=== PATIENT | female | born 1960 | race Caucasian/White ===

== ENCOUNTER 2024-12-28 22:22 | Emergency (ER) | payer SELFPAY ==
--- NOTE | ~2024-12-28 | XR_ITS ---
HISTORY: racoon bite COMPARISON: None TECHNIQUE: 2 views of the tibia and fibula were performed FINDINGS: No acute or subacute fracture. Joint spaces are preserved and alignment is maintained. Soft tissues are unremarkable without radiopaque foreign body or significant calcification. Age-appropriate mineralization. Ossification of the insertion of the Achilles tendon is present. IMPRESSION: No acute fracture or dislocation. Trace degenerative disease. Reviewed, dictated and finalized at location A.
--- OUTSIDE RECORDS SUMMARY | 2024-12-28 22:24 | XMS_ITS | Referral Summary ---
Author Organization [facility] Address [address] [place] [id number] Care Team Providers Care Corporate Auditor Name Role Phone Urban Deborah Chadwick NP Primary Care Provider [phone] Ramesh Vale MD Unavailable [phone] Allergies No known active allergies Medications levothyroxine (SYNTHROID) 75 mcg tablet Take 1 tablet (75 mcg total) by mouth daily 11/12/2022 Active propranolol LA (INDERAL LA) 80 mg 24 hr capsule Take 1 capsule (80 mg total) by mouth daily 10/28/2022 Active metFORMIN XR (GLUCOPHAGE XR) 500 mg 24 hr tablet Take 1 tablet (500 mg total) by mouth daily 12/29/2022 Active Active Problems Problem Noted Date Diagnosed Date Erythrocytosis 01/08/2023 Social History Tobacco Use Types Packs/Day Years Used Date Smoking Tobacco: Some Days Cigarettes Passive Smoke Exposure: Past Smokeless Tobacco: Never Tobacco Cessation:Ready to Q uit: Not Asked AUDIT-C Answer Date Recorded Q1: How often do you have a drink containing alc ohol? Monthly or less 12/08/2022 Q2: How many drinks containi ng alcohol do you have on a typical day when you are drinking? 3 or 4 12/08/2022 Q3: How often do you have si x or more drinks on one occasion? 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 Gender Identity Not on file Sexual Orientation Not on file Last Filed Vital Signs Vital Sign Reading Time Taken Comments Blood Pressure 162/84 01/13/2023 10:52 AM CDT Pulse 75 01/13/2023 10:52 AM CDT Temperature 36.8 C (98.2 F) 01/13/2023 10:52 AM CDT Respiratory Rate 17 01/13/2023 10:52 AM CDT Oxygen Saturation 97% 01/13/2023 10:52 AM CDT Inhaled Oxygen Concentration - - Weight 86.6 kg (191 lb) 01/13/2023 10:52 AM CDT Height 165.1 cm (5' 5) 01/13/2023 10:52 AM CDT Body Mass Index 31.78 01/13/2023 10:52 AM CDT Plan of Treatment Not on file Insurance [employer] [facility] [employer] [facility] Care Teams Corporate Auditor Relationship Specialty Start Date End Date Deborah Duggan NP PCP - General Nurse Practitioner 08/14/22 Ramesh Vale MD [address] [place] [address] MEDICAL ONCOLOGY, [place] [id number] Medical Oncologist/Elastic Assembler Hematology and Oncology 01/11/23
--- OUTSIDE RECORDS SUMMARY | 2024-12-28 22:24 | XMS_ITS | Clinical Summary ---
Author Organization [facility] Address [address] [place] [id number] Care Team Providers Care Material Man Name Role Phone Urban Deborah Chadwick NP Primary Care Provider [phone] Ramesh Vale MD Unavailable [phone] Allergies No known active allergies Medications levothyroxine [...] Problem Noted Date Diagnosed Date Erythrocytosis 01/08/2023 Surgical History Surgery Date Site/Laterality Comments SECTION 07/12/1979 - 07/11/1980 HYSTERECTOMY 07/12/1989 - 07/11/1990 GALLBLADDER SURGERY 07/12/2019 - 07/11/2020 Medical History Medical History Date Comments Hypertension Thyroid disease Anxiety Family History Medical History Relation Name Comments Throat cancer Brother MANJU sinus Sister Joanne Relation Name Status Comments Brother MANJU Alive Sister Joanne Social History Tobacco Use Types Packs/Day Years [...] on file 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 Gender Identity Not on file Sexual Orientation Not on file Obstetrics History Last Filed Vital Signs Vital Sign Reading [...] 01/13/2023 10:52 AM CDT Plan of Treatment Health Maintenance Due Date Last Done Comments Breast Cancer Screening-Mammogram 1959 Colon Cancer Screening-Colonoscopy 1959 Depression Screening 1959 Fall Risk Assessment 1959 Hepatitis C Screening 1959 Osteoporosis Screening-Bone Density Scan 1959 DTaP/Tdap/Td Vaccine (1 - Tdap) 1970 Hepatitis B Screening 1977 Pneumococcal vaccine 65+ (1 of 2 - PCV) 1978 Zoster Vaccine (1 of 2) 2009 Well Visit 65+ 02/18/2024 Covid-19 Vaccine (3 - season) 2024, 10/08/2020 Influenza Vaccine (Season Ended) 2025 Insurance [facility]ETNA [facility] [place] Care Teams Material Man Relationship Specialty Start Date End Date Deborah Duggan NP PCP - General Nurse Practitioner 08/14/22 Ramesh Vale MD [address] [place] [address] MEDICAL ONCOLOGY, [address] [address] Medical Oncologist/Grain Merchandising Manager Hematology and Oncology 01/11/23
[2024-12-28 22:25] VITALS: BP 183/84; PULSE 86; RESP 18; TEMP 36.4; O2SAT 97
--- OUTSIDE RECORDS SUMMARY | 2024-12-28 22:25 | XMS_ITS | Data Portability ---
Author Organization [facility], Main Office Address [address] [place] [address] Assessment Encounter Date Assessment Date Assessment LastModified by Organization Details LastModified Time 12/28/2022 12/28/2022 WEA- 12/28/22 Cscope- will have her see GI first to see what their recommendation is for type of screening due to her previous issues with colonoscopy, she has now refused to go to GI or get a Cscope WWE- refuses Mammogram- 12/2021 DEXA- 12/2021- osteopenia LDCT- refuses Call office if worse, ER if life threatening illness RTC 4 months and PRN She voices understanding of plan and agrees [email or web address] Not available 12/28/2022 13:16:50 04/26/2023 04/26/2023 WEA- 12/28/22 Cscope- will have her see GI first to see what their recommendation is for type of screening due to her previous issues with colonoscopy, she has now refused to go to GI or get a Cscope WWE- refuses Mammogram- 12/2021- refuses further DEXA- 12/2021- osteopenia LDCT- refuses Call office if worse, ER if life threatening illness RTC 4 months and PRN She voices understanding of plan and agrees [email or web address] Not available 04/26/2023 11:32:09 Plan of Treatment Reminders Order Date Submit Date Provider Last Modified By Organization Details Last Modified Time Details Appointments None recorded. Lab vitamin B12 + folate, serum or blood 2022 023 [email or web address] [facility] (Lab), [address] [place], [address], 12:56:16 lipid panel, serum 2022 023 [email or web address] [facility] (Lab), [address] [place], [address], 3 17:28:25 T4, free, serum [address] [facility] (Lab), [address] [place], [address], 3 21:54:05 TSH, serum or plasma [address] [facility] (Lab), [address] [place], [address], 3 22:04:56 vitamin D, 25-hydroxy, total, serum [address] (Lab), [address] [place], [address], 4 12:56:15 glycohemogl obin, total, blood [address] [facility] (Lab), [address] [place], [address], 3 18:21:26 CBC w/ auto diff [address] [facility] (Lab), [address] [place], [address], 3 14:48:37 CMP, serum or plasma [address] [facility] (Lab), [address] [place], [address], 3 17:28:20 lipid panel, serum [address] [facility] (Lab), [address] [place], [address], 3 12:17:21 TSH, serum or plasma [address] [facility] (Lab), [address] [place], [address], 3 12:35:23 T4, free, serum [address] [facility] (Lab), [address] [place], [address], 3 12:21:56 glycohemogl obin, total, blood [address] [facility] (Lab), [address] [place], [address], 3 13:03:46 CBC w/ auto diff [address] [facility] (Lab), [address] [place], [address], 3 11:41:00 CMP, serum or plasma [address] [facility] (Lab), [address] [place], [address], 3 12:16:56 vitamin B12 + folate, serum or blood [address] (Lab), [address] [place], [address], 3 15:50:27 vitamin D, 25-hydroxy, total, serum [address] (Lab), [address] [place], [address], 3 15:50:27 Referral None recorded. Procedures None recorded. Surgeries None recorded. Imaging MAMMO, screening, bilateral [address] ([facility]), [address] [place], [address], 4 15:56:37 Medication Orders cyanocobala min (vit B-12) 500 mcg tablet 2022 023 CUONG [facility], [address] [place], [address], 3 10:33:47 ergocalcife rol (vitamin D2) 1,250 mcg (50,000 unit) capsule 2022 023 [email or web address] [facility], [address] [place], [address], 3 13:15:34 Patient TargetsNo targets recorded. Patient Instructions Encounter Date Encounter Id Patient Instructions Last Modified By Organization Details Last Modified Time 12/28/2022 [id number] INFLUENZA VACCIN E Next vaccination to be given fall of 2022 TD/TDAP Patient will get at local pharmacy/health department PNEUMONIA VACCINE Patient will get at local pharmacy/health department SHINGLES Patient will get at local pharmacy/health department MAMMOGRAM: Last Mammogram _ Ordered DEXA SCAN No screening necessary patient is up to date CERVICAL SCREENING/PELVIC EXAMINATION Recommended today, but patient declined COLORECTAL SCREENING: Last Colonoscopy Recommended today, but patient declined DEPRESSION SCREENING History of depression BMI Obesity try to lose 5% of your body weight NUTRITION Continue healthy eating & exercise PHYSICAL ACTIVITY Need more exercise/physical activity minimum of 30-40 minutes of activity that causes mild breathlessness/day VISION Recommended today ALCOHOL USE No alcohol use TOBACCO USE current tobacco use Patient is not interested in smoking cessation at this time- Handout given LUNG CANCER SCREENING Recommendation for Lung Cancer Screening with LDCT- Patient declined SEXUALLY ACTIVE No HEPATITIS C SCREENING Not indicated GLUCOSE SCREENING Ordered LIPID SCREENING Ordered [email or web address] [id number] Not available 12/28/2022 13:18:33 Reason for Referral None Reported. Results Created Date Observation Date Name Description Value Unit Range Abnormal Flag Note LastModifiedBy Organization Detail LastModifiedTime 08/03/1908/03/2022 HEMOG LOBIN A1C HA1C 6.2 % 4.0-6. 0 high Diabe charis Tre barger Crite jose: <5.7% Consi stent with absen ce of diabe charis 5.7-6 .4% Consi stent with incre ased risk for diabe charis (pred iabet es) >OR=6 .5% Consi stent with diabe charis REFER ENCE: Diabe charis Care 2016, 39(Ramos ppl.1 ):s13 -s22 Not Available [facility] (Lab) [address] [place], [address], 08/03/2022 16:00:29 08/03/19 23 08/03/2022 FOLAT E, SERUM /PLAS MA folate 8.72 NG/mL 2.76-2 0.0 Not Available [facility] (Lab) [address] [place], [address], 08/03/2022 14:24:08 08/03/19 23 08/03/2022 VITAM IN B12 (DONN JHON ) vb12 750 pg/mL 239-93 1 Not Available [facility] (Lab) [address] [place], [address], 08/03/2022 14:24:07 08/03/19 23 08/03/2022 TSH thyroid-stim ulating hormone 7.130 uIU/m L 0.465- 4.680 high Not Available [facility] (Lab) [address] [place], [address], 08/03/2022 14:17:11 08/03/1908/03/2022 VITAM IN D 25-HY DROXY vd25oh 35.6 NG/mL 30-100 Vitam in D Statu s: Defic ient: <20 ng/mL Insuf ficie nt: 20-29 ng/mL Suffi cient : 30-10 0 ng/mL Not Available [facility] (Lab) [address] [place], [address], 08/03/2022 14:15:12 08/03/19 23 08/03/2022 CBC/C OMPLE TE BLD COUNT W/DIF F white blood cells 15.4 x10'3 /uL 4.2-10 .8 high Not Available [facility] (Lab) [address] [place], [address], 08/03/2022 14:02:45 08/03/19 23 08/03/2022 CBC/C OMPLE TE BLD COUNT W/DIF F red blood cells 5.41 x10'6 /uL 3.80-5 .20 high Not Available [facility] (Lab) [address] [place], [address], 08/03/2022 14:02:45 08/03/1908/03/2022 CBC/C OMPLE TE BLD COUNT W/DIF F hemoglobin 17.5 g/dL 12.0-1 5.6 high Not Available [facility] (Lab) [address] [place], [address], 08/03/2022 14:02:45 08/03/19 23 08/03/2022 CBC/C OMPLE TE BLD COUNT W/DIF F hematocrit 53.2 % 35.7-4 5.7 high Not Available [facility] (Lab) [address] [place], [address], 08/03/2022 14:02:45 08/03/1908/03/2022 CBC/C OMPLE TE BLD COUNT W/DIF F mean red cell volume 98.3 fL 82.0-9 9.0 Not Available [facility] (Lab) [address] [place], [address], 08/03/2022 14:02:45 08/03/19 23 08/03/2022 CBC/C OMPLE TE BLD COUNT W/DIF F mean red cell hemoglobin 32.3 pg 27.0-3 3.0 Not Available [facility] (Lab) [address] [place], [address], 08/03/2022 14:02:45 08/03/1908/03/2022 CBC/C OMPLE TE BLD COUNT W/DIF F mean RBC HGB concentratio n 32.9 g/dL 31.0-3 6.0 Not Available [facility] (Lab) [address] [place], [address], 08/03/2022 14:02:45 08/03/1908/03/2022 CBC/C OMPLE TE BLD COUNT W/DIF F red cell distribution width 12.8 % 11.8-1 5.5 Not Available [facility] (Lab) [address] [place], [address], 08/03/2022 14:02:45 08/03/1908/03/2022 CBC/C OMPLE TE BLD COUNT W/DIF F platelets 196 x10'3 /uL 150-40 0 Not Available [facility] (Lab) [address] [place], [address], 08/03/2022 14:02:45 08/03/1908/03/2022 CBC/C OMPLE TE BLD COUNT W/DIF F mean platelet volume 11.0 fL 9.0-12 .4 Not Available [facility] (Lab) [address] [place], [address], 08/03/2022 14:02:45 08/03/1908/03/2022 CBC/C OMPLE TE BLD COUNT W/DIF F neutrophils 67.0 % 39.0-7 2.0 Not Available [facility] (Lab) [address] [place], [address], 08/03/2022 14:02:45 08/03/1908/03/2022 CBC/C OMPLE TE BLD COUNT W/DIF F lymphocytes 23.8 % 16.0-4 7.0 Not Available [facility] (Lab) [address] [place], [address], 08/03/2022 14:02:45 08/03/1908/03/2022 CBC/C OMPLE TE BLD COUNT W/DIF F monocytes 6.2 % 5.0-12 .0 Not Available [facility] (Lab) [address] [place], [address], 08/03/2022 14:02:45 08/03/1908/03/2022 CBC/C OMPLE TE BLD COUNT W/DIF F eosinophils 1.9 % 1.0-7. 0 Not Available [facility] (Lab) [address] [place], [address], 08/03/2022 14:02:45 08/03/1908/03/2022 CBC/C OMPLE TE BLD COUNT W/DIF F basophils 0.6 % 0.0-2. 0 Not Available [facility] (Lab) [address] [place], [address], 08/03/2022 14:02:45 08/03/1908/03/2022 CBC/C OMPLE TE BLD COUNT W/DIF F immature granulocytes 0.5 % 0.00-0 .50 Not Available [facility] (Lab) [address] [place], [address], 08/03/2022 14:02:45 08/03/1908/03/2022 CBC/C OMPLE TE BLD COUNT W/DIF F neutrophils, absolute count 10.31 x10'3 /uL 1.5-8. 0 high Not Available [facility] (Lab) [address] [place], [address], 08/03/2022 14:02:45 08/03/1908/03/2022 CBC/C OMPLE TE BLD COUNT W/DIF F lymphocytes, absolute count 3.66 x10'3 /uL 1.07-3 .43 high Not Available [facility] (Lab) [address] [place], [address], 08/03/2022 14:02:45 08/03/1908/03/2022 CBC/C OMPLE TE BLD COUNT W/DIF F monocytes, absolute count 0.95 x10'3 /uL 0.29-0 .99 Not Available [facility] (Lab) [address] [place], [address], 08/03/2022 14:02:45 08/03/1908/03/2022 CBC/C OMPLE TE BLD COUNT W/DIF F eosinophils, absolute count 0.30 x10'3 /uL 0.02-0 .53 Not Available [facility] (Lab) [address] [place], [address], 08/03/2022 14:02:45 08/03/1908/03/2022 CBC/C OMPLE TE BLD COUNT W/DIF F basophils, absolute count 0.10 x10'3 /uL 0.01-0 .08 high Not Available [facility] (Lab) [address] [place], [address], 08/03/2022 14:02:45 08/03/1908/03/2022 CBC/C OMPLE TE BLD COUNT W/DIF F immature granulocytes ,absolute 0.08 x10'3 /uL 0.00-0 .05 high Not Available [facility] (Lab) [address] [place], [address], 08/03/2022 14:02:45 08/03/1908/03/2022 CBC/C OMPLE TE BLD COUNT W/DIF F nucleated red blood cells 0.0 % -0 Not Available [facility] (Lab) [address] [place], [address], 08/03/2022 14:02:45 08/03/1908/03/2022 CBC/C OMPLE TE BLD COUNT W/DIF F NRBC# 0.00 x10'3 /uL Not Available [facility] (Lab) [address] [place], [address], 08/03/2022 14:02:45 08/03/19 23 08/03/2022 URINA LYSIS COMPL ETE/I RIS W/RFX color yellow Not Available [facility] (Lab) [address] [place], [address], 08/03/2022 13:36:35 08/03/19 23 08/03/2022 URINA LYSIS COMPL ETE/I RIS W/RFX appear extra turbid abnormal Not Available [facility] (Lab) [address] [place], [address], 08/03/2022 13:36:35 08/03/19 23 08/03/2022 URINA LYSIS COMPL ETE/I RIS W/RFX specific gravity 1.021 1.001- 1.030 Not Available [facility] (Lab) [address] [place], [address], 08/03/2022 13:36:35 08/03/19 23 08/03/2022 URINA LYSIS COMPL ETE/I RIS W/RFX pH 5.0 pH_un its 5.0-9. 0 Not Available [facility] (Lab) [address] [place], [address], 08/03/2022 13:36:35 08/03/19 23 08/03/2022 URINA LYSIS COMPL ETE/I RIS W/RFX leukocytes negati ve dimitrios/u L negati ve- Not Available [facility] (Lab) [address] [place], [address], 08/03/2022 13:36:35 08/03/19 23 08/03/2022 URINA LYSIS COMPL ETE/I RIS W/RFX nitrite negati ve negati ve- Not Available [facility] (Lab) [address] [place], [address], 08/03/2022 13:36:35 08/03/1908/03/2022 URINA LYSIS COMPL ETE/I RIS W/RFX protein negati ve mg/dL negati ve- Not Available [facility] (Lab) [address] [place], [address], 08/03/2022 13:36:35 08/03/1908/03/2022 URINA LYSIS COMPL ETE/I RIS W/RFX glucose normal mg/dL normal - Not Available [facility] (Lab) [address] [place], [address], 08/03/2022 13:36:35 08/03/19 23 08/03/2022 URINA LYSIS COMPL ETE/I RIS W/RFX ketones negati ve mg/dL negati ve- Not Available [facility] (Lab) [address] [place], [address], 08/03/2022 13:36:35 08/03/1908/03/2022 URINA LYSIS COMPL ETE/I RIS W/RFX urobilinogen normal mg/dL normal - Not Available [facility] (Lab) [address] [place], [address], 08/03/2022 13:36:35 08/03/1908/03/2022 URINA LYSIS COMPL ETE/I RIS W/RFX bilirubin negati ve mg/dL negati ve- Not Available [facility] (Lab) [address] [place], [address], 08/03/2022 13:36:35 08/03/19 23 08/03/2022 URINA LYSIS COMPL ETE/I RIS W/RFX blood negati ve mg/dL negati ve- Not Available [facility] (Lab) [address] [place], [address], 08/03/2022 13:36:35 08/03/19 23 08/03/2022 URINA LYSIS COMPL ETE/I RIS W/RFX white blood cells 0-8 /i??h pfi?? 0-8 Not Available [facility] (Lab) [address] [place], [address], 08/03/2022 13:36:35 08/03/19 23 08/03/2022 URINA LYSIS COMPL ETE/I RIS W/RFX red blood cells 0-4 /i??h pfi?? 0-4 Not Available [facility] (Lab) [address] [place], [address], 08/03/2022 13:36:35 08/03/19 23 08/03/2022 URINA LYSIS COMPL ETE/I RIS W/RFX bacteria none Not Available [facility] (Lab) [address] [place], [address], 08/03/2022 13:36:35 08/03/1908/03/2022 URINA LYSIS COMPL ETE/I RIS W/RFX mucous few /i??l pfi?? abnormal Not Available [facility] (Lab) [address] [place], [address], 08/03/2022 13:36:35 08/03/1908/03/2022 URINA LYSIS COMPL ETE/I RIS W/RFX squamous epithelial packed field /i??l pfi?? abnormal Not Available [facility] (Lab) [address] [place], [address], 08/03/2022 13:36:35 08/03/19 23 08/03/2022 T4 FREE free T4 1.03 NG/dL 0.78-2 .19 Not Available [facility] (Lab) [address] [place], [address], 08/03/2022 13:33:46 08/03/19 23 08/03/2022 LIPID PANEL cholesterol 200 mg/dL 140-19 9 high NIH ARTHRU NSUS RECOM MENDA TION FOR JONNATHAN STERO L: ADULT CHILD LOW RISK: <200 <170 BORDE RLINE : <200- 239 ----- HIGH RISK: >240 >200 Not Available [facility] (Lab) [address] [place], [address], 08/03/2022 13:29:00 08/03/1908/03/2022 LIPID PANEL triglyceride s 181 mg/dL 0-150 high NIH ARTHUR NSUS REPOR T RECOM MENDA TION FOR TRIGL YCERI DARLENE: ADULT CHILD LOW RISK: <150 ----- BODER LINE: 150-1 99 ----- HIGH RISK: >200 ----- Not Available [facility] (Lab) [address] [place], [address], 08/03/2022 13:29:00 08/03/1908/03/2022 LIPID PANEL HDL cholesterol 45 mg/dL 40- Not Available [facility] (Lab) [address] [place], [address], 08/03/2022 13:29:00 08/03/19 23 08/03/2022 LIPID PANEL LDL cholesterol, calculated 119 mg/dL 0-130 NIH ARTHUR NSUS REPOR T RECOM MENDA TIONS FOR LDL: ADULT CHILD LOW RISK <130 <110 (OPTI MAL LDL) <100 ----- BORDE RLINE : 130-1 59 ----- HIGH RISK: >160 >130 A TRIGL YCERI DE RESUL T >400 INVAL IDATE S THE CALCU LATIO N FOR LDL FRACT IONAT ION - THE LDL RESUL T WILL NOT BE REPOR NISHA. Not Available [facility] (Lab) [address] [place], [address], 08/03/2022 13:29:00 08/03/19 23 08/03/2022 COMPR EHENS DINO METAB OLIC PANEL sodium 140 mmol/ L 137-14 5 Not Available [facility] (Lab) [address] [place], [address], 08/03/2022 13:28:52 08/03/1908/03/2022 COMPR EHENS DINO METAB OLIC PANEL potassium 4.6 mmol/ L 3.5-5. 1 Not Available [facility] (Lab) [address] [place], [address], 08/03/2022 13:28:52 08/03/1908/03/2022 COMPR EHENS DINO METAB OLIC PANEL chloride 108 mmol/ L 98-107 high Not Available [facility] (Lab) [address] [place], [address], 08/03/2022 13:28:52 08/03/19 23 08/03/2022 COMPR EHENS DINO METAB OLIC PANEL carbon dioxide 26 mmol/ L 22-30 Not Available [facility] (Lab) [address] [place], [address], 08/03/2022 13:28:52 08/03/1908/03/2022 COMPR EHENS DINO METAB OLIC PANEL anion gap 10.6 mmol/ L 14-22 low Not Available [facility] (Lab) [address] [place], [address], 08/03/2022 13:28:52 08/03/1908/03/2022 COMPR EHENS DINO METAB OLIC PANEL glucose 108 mg/dL 70-99 high Not Available [facility] (Lab) [address] [place], [address], 08/03/2022 13:28:52 08/03/1908/03/2022 COMPR EHENS DINO METAB OLIC PANEL BUN 17 mg/dL 8-19 Not Available [facility] (Lab) [address] [place], [address], 08/03/2022 13:28:52 08/03/19 23 08/03/2022 COMPR EHENS DINO METAB OLIC PANEL creatinine 0.72 mg/dL 0.66-1 .25 Not Available [facility] (Lab) [address] [place], [address], 08/03/2022 13:28:52 08/03/19 23 08/03/2022 COMPR EHENS DINO METAB OLIC PANEL GFR >60 Refer ence Range : [place] ge GFR Healt hy Adult : >60 mL/mi n/1.7 3 m2 Chron ic Kidne y Disea se: 15-60 mL/mi n/1.7 3 m2 Kidne y Failu re: <15/m L/min /1.73 m2 www.n iddk. nih.g ov The MDRD study equat ion has not been valid ated in child alonso <18 years of age; pregn ant women ; the elder ly >85 years of age; or in some racia l or ethni c subgr oups, such as Hisnd nics. Outsi de the valid ated linda eters , estim ated GFR is less accur ate, requi ring clini mikaela judgm ent on a case- by-ca se basis . Clini mikaela inter preta tion for other races and ages must be made by the clini raj. The MDRD study equat ion has not been valid ated for the evalu ation of serum creat inine relat ed to nutri zac l statu s or medic ation usage . For perso ns <18 years of age, a pedia tric GFR calcu lator is avail able on the F websi te: https ://otis w.kid tavares.o rg/pr ofess ional s/kdo qi/gf r_cal culat or Not Available [facility] (Lab) [address] [place], [address], 08/03/2022 13:28:52 08/03/19 23 08/03/2022 COMPR EHENS DINO METAB OLIC PANEL alkaline phosphatase 84 U/L 38-126 Not Available [facility] (Lab) [address] [place], [address], 08/03/2022 13:28:52 08/03/19 23 08/03/2022 COMPR EHENS DION METAB OLIC PANEL alanine aminotransfe rase 19 U/L 0-35 Not Available [facility] (Lab) [address] [place], [address], 08/03/2022 13:28:52 08/03/19 23 08/03/2022 COMPR EHENS DINO METAB OLIC PANEL aspartate aminotransfe rase 21 U/L 15-37 Not Available [facility] (Lab) [address] [place], [address], 08/03/2022 13:28:52 08/03/19 23 08/03/2022 COMPR EHENS DINO METAB OLIC PANEL bilirubin, total 0.60 mg/dL 0.20-1 .30 Not Available [facility] (Lab) [address] [place], [address], 08/03/2022 13:28:52 08/03/1908/03/2022 COMPR EHENS DINO METAB OLIC PANEL calcium 9.9 mg/dL 8.4-10 .2 Not Available [facility] (Lab) [address] [place], [address], 08/03/2022 13:28:52 08/03/1908/03/2022 COMPR EHENS DINO METAB OLIC PANEL total protein 7.5 g/dL 6.3-8. 2 Not Available [facility] (Lab) [address] [place], [address], 08/03/2022 13:28:52 08/03/19 23 08/03/2022 COMPR EHENS DINO METAB OLIC PANEL albumin 4.5 g/dL 3.0-4. 4 high Not Available [facility] (Lab) [address] [place], [address], 08/03/2022 13:28:52 08/03/19 23 08/03/2022 COMPR EHENS DINO METAB OLIC PANEL globulin 3.0 g/dL 2.6-4. 2 Not Available [facility] (Lab) [address] [place], [address], 08/03/2022 13:28:52 08/03/19 23 08/03/2022 COMPR EHENS DINO METAB OLIC PANEL A/G ratio 1.5 ratio 1.0-2. 0 Not Available [facility] (Lab) [address] [place], [address], 08/03/2022 13:28:52 12/29/19 23 12/28/2022 CBC/C OMPLE TE BLD COUNT W/DIF F white blood cells 10.6 x10'3 /uL 4.2-10 .8 Not Available [facility] (Lab) [address] [place], [address], 12/28/2022 11:41:00 12/29/19 23 12/28/2022 CBC/C OMPLE TE BLD COUNT W/DIF F red blood cells 5.11 x10'6 /uL 3.80-5 .20 Not Available [facility] (Lab) [address] [place], [address], 12/28/2022 11:41:00 12/29/19 23 12/28/2022 CBC/C OMPLE TE BLD COUNT W/DIF F hemoglobin 16.8 g/dL 12.0-1 5.6 high Not Available [facility] (Lab) [address] [place], [address], 12/28/2022 11:41:00 12/29/19 23 12/28/2022 CBC/C OMPLE TE BLD COUNT W/DIF F hematocrit 49.9 % 35.7-4 5.7 high Not Available [facility] (Lab) [address] [place], [address], 12/28/2022 11:41:00 12/29/19 23 12/28/2022 CBC/C OMPLE TE BLD COUNT W/DIF F mean red cell volume 97.7 fL 82.0-9 9.0 Not Available [facility] (Lab) [address] [place], [address], 12/28/2022 11:41:00 12/29/19 23 12/28/2022 CBC/C OMPLE TE BLD COUNT W/DIF F mean red cell hemoglobin 32.9 pg 27.0-3 3.0 Not Available [facility] (Lab) [address] [place], [address], 12/28/2022 11:41:00 12/29/19 23 12/28/2022 CBC/C OMPLE TE BLD COUNT W/DIF F mean RBC HGB concentratio n 33.7 g/dL 31.0-3 6.0 Not Available [facility] (Lab) [address] [place], [address], 12/28/2022 11:41:00 12/29/19 23 12/28/2022 CBC/C OMPLE TE BLD COUNT W/DIF F red cell distribution width 12.9 % 11.8-1 5.5 Not Available [facility] (Lab) [address] [place], [address], 12/28/2022 11:41:00 12/29/19 23 12/28/2022 CBC/C OMPLE TE BLD COUNT W/DIF F platelets 206 x10'3 /uL 150-40 0 Not Available [facility] (Lab) [address] [place], [address], 12/28/2022 11:41:00 12/29/19 23 12/28/2022 CBC/C OMPLE TE BLD COUNT W/DIF F mean platelet volume 11.0 fL 9.0-12 .4 Not Available [facility] (Lab) [address] [place], [address], 12/28/2022 11:41:00 12/29/19 23 12/28/2022 CBC/C OMPLE TE BLD COUNT W/DIF F neutrophils 61.5 % 39.0-7 2.0 Not Available [facility] (Lab) [address] [place], [address], 12/28/2022 11:41:00 12/29/19 23 12/28/2022 CBC/C OMPLE TE BLD COUNT W/DIF F lymphocytes 27.4 % 16.0-4 7.0 Not Available [facility] (Lab) [address] [place], [address], 12/28/2022 11:41:00 12/29/19 23 12/28/2022 CBC/C OMPLE TE BLD COUNT W/DIF F monocytes 6.6 % 5.0-12 .0 Not Available [facility] (Lab) [address] [place], [address], 12/28/2022 11:41:00 12/29/19 23 12/28/2022 CBC/C OMPLE TE BLD COUNT W/DIF F eosinophils 3.1 % 1.0-7. 0 Not Available [facility] (Lab) [address] [place], [address], 12/28/2022 11:41:00 12/29/19 23 12/28/2022 CBC/C OMPLE TE BLD COUNT W/DIF F basophils 1.0 % 0.0-2. 0 Not Available [facility] (Lab) [address] [place], [address], 12/28/2022 11:41:00 12/29/19 23 12/28/2022 CBC/C OMPLE TE BLD COUNT W/DIF F immature granulocytes 0.4 % 0.00-0 .50 Not Available [facility] (Lab) [address] [place], [address], 12/28/2022 11:41:00 12/29/19 23 12/28/2022 CBC/C OMPLE TE BLD COUNT W/DIF F neutrophils, absolute count 6.51 x10'3 /uL 1.5-8. 0 Not Available [facility] (Lab) [address] [place], [address], 12/28/2022 11:41:00 12/29/19 23 12/28/2022 CBC/C OMPLE TE BLD COUNT W/DIF F lymphocytes, absolute count 2.90 x10'3 /uL 1.07-3 .43 Not Available [facility] (Lab) [address] [place], [address], 12/28/2022 11:41:00 12/29/19 23 12/28/2022 CBC/C OMPLE TE BLD COUNT W/DIF F monocytes, absolute count 0.70 x10'3 /uL 0.29-0 .99 Not Available [facility] (Lab) [address] [place], [address], 12/28/2022 11:41:00 12/29/19 23 12/28/2022 CBC/C OMPLE TE BLD COUNT W/DIF F eosinophils, absolute count 0.33 x10'3 /uL 0.02-0 .53 Not Available [facility] (Lab) [address] [place], [address], 12/28/2022 11:41:00 12/29/19 23 12/28/2022 CBC/C OMPLE TE BLD COUNT W/DIF F basophils, absolute count 0.11 x10'3 /uL 0.01-0 .08 high Not Available [facility] (Lab) [address] [place], [address], 12/28/2022 11:41:00 12/29/19 23 12/28/2022 CBC/C OMPLE TE BLD COUNT W/DIF F immature granulocytes ,absolute 0.04 x10'3 /uL 0.00-0 .05 Not Available [facility] (Lab) [address] [place], [address], 12/28/2022 11:41:00 12/29/19 23 12/28/2022 CBC/C OMPLE TE BLD COUNT W/DIF F nucleated red blood cells 0.0 % -0 Not Available [facility] (Lab) [address] [place], [address], 12/28/2022 11:41:00 12/29/19 23 12/28/2022 CBC/C OMPLE TE BLD COUNT W/DIF F NRBC# 0.00 x10'3 /uL Not Available [facility] (Lab) [address] [place], [address], 12/28/2022 11:41:00 12/29/19 23 12/28/2022 COMP MET PANEL /LIVE R sodium 141 mmol/ L 137-14 5 Not Available [facility] (Lab) [address] [place], [address], 12/28/2022 12:16:56 12/29/19 23 12/28/2022 COMP MET PANEL /LIVE R potassium 4.4 mmol/ L 3.5-5. 1 Not Available [facility] (Lab) [address] [place], [address], 12/28/2022 12:16:56 12/29/19 23 12/28/2022 COMP MET PANEL /LIVE R chloride 105 mmol/ L 98-107 Not Available [facility] (Lab) [address] [place], [address], 12/28/2022 12:16:56 12/29/19 23 12/28/2022 COMP MET PANEL /LIVE R carbon dioxide 25 mmol/ L 22-30 Not Available [facility] (Lab) [address] [place], [address], 12/28/2022 12:16:56 12/29/19 23 12/28/2022 COMP MET PANEL /LIVE R anion gap 15.4 mmol/ L 14-22 Not Available [facility] (Lab) [address] [place], [address], 12/28/2022 12:16:56 12/29/19 23 12/28/2022 COMP MET PANEL /LIVE R glucose 99 mg/dL 70-99 Not Available [facility] (Lab) [address] [place], [address], 12/28/2022 12:16:56 12/29/19 23 12/28/2022 COMP MET PANEL /LIVE R BUN 12 mg/dL 8-19 Not Available [facility] (Lab) [address] [place], [address], 12/28/2022 12:16:56 12/29/19 23 12/28/2022 COMP MET PANEL /LIVE R creatinine 0.62 mg/dL 0.66-1 .25 low Not Available [facility] (Lab) [address] [place], [address], 12/28/2022 12:16:56 12/29/19 23 12/28/2022 COMP MET PANEL /LIVE R GFR >60 Refer ence Range : [place] ge GFR Healt hy Adult : >60 mL/mi n/1.7 3 m2 Chron ic Kidne y Disea se: 15-60 mL/mi n/1.7 3 m2 Kidne y Failu re: <15/m L/min /1.73 m2 www.n iddk. nih.g ov The MDRD study equat ion has not been valid ated in child alonso <18 years of age; pregn ant women ; the elder ly >85 years of age; or in some racia l or ethni c subgr oups, such as Hispa nics. Outsi de the valid ated linda eters , estim ated GFR is less accur ate, requi ring clini mikaela judgm ent on a case- by-ca se basis . Clini mikaela inter preta tion for other races and ages must be made by the clini raj. The MDRD study equat ion has not been valid ated for the evalu ation of serum creat inine relat ed to nutri zac l statu s or medic ation usage . For perso ns <18 years of age, a pedia tric GFR calcu lator is avail able on the [facility] websi te: https ://ww w.kid tavares.o rg/pr ofess ional s/kdo qi/gf r_cal culat or Not Available [facility] (Lab) [address] [place], [address], 12/28/2022 12:16:56 12/29/19 23 12/28/2022 COMP MET PANEL /LIVE R alkaline phosphatase 74 U/L 38-126 Not Available [facility] (Lab) [address] [place], [address], 12/28/2022 12:16:56 12/29/19 23 12/28/2022 COMP MET PANEL /LIVE R alanine aminotransfe rase 25 U/L 0-35 Not Available [facility] (Lab) [address] [place], [address], 12/28/2022 12:16:56 12/29/19 23 12/28/2022 COMP MET PANEL /LIVE R aspartate aminotransfe rase 24 U/L 15-37 Not Available [facility] (Lab) [address] [place], [address], 12/28/2022 12:16:56 12/29/19 23 12/28/2022 COMP MET PANEL /LIVE R bilirubin, total 0.60 mg/dL 0.20-1 .30 Not Available [facility] (Lab) [address] [place], [address], 12/28/2022 12:16:56 12/29/19 23 12/28/2022 COMP MET PANEL /LIVE R bilirubin, conjugated (direct) 0.00 mg/dL 0.00-0 .30 Not Available [facility] (Lab) [address] [place], [address], 12/28/2022 12:16:56 12/29/19 23 12/28/2022 COMP MET PANEL /LIVE R biliurubin,u ncong. (indirect) 0.40 mg/dL 0.00-1 .1 Not Available [facility] (Lab) [address] [place], [address], 12/28/2022 12:16:56 12/29/19 23 12/28/2022 COMP MET PANEL /LIVE R calcium 9.7 mg/dL 8.4-10 .2 Not Available [facility] (Lab) [address] [place], [address], 12/28/2022 12:16:56 12/29/19 23 12/28/2022 COMP MET PANEL /LIVE R total protein 7.5 g/dL 6.3-8. 2 Not Available [facility] (Lab) [address] [place], [address], 12/28/2022 12:16:56 12/29/19 23 12/28/2022 COMP MET PANEL /LIVE R albumin 4.1 g/dL 3.0-4. 4 Not Available [facility] (Lab) [address] [place], [address], 12/28/2022 12:16:56 12/29/19 23 12/28/2022 COMP MET PANEL /LIVE R globulin 3.4 g/dL 2.6-4. 2 Not Available [facility] (Lab) [address] [place], [address], 12/28/2022 12:16:56 12/29/19 23 12/28/2022 COMP MET PANEL /LIVE R A/G ratio 1.2 ratio 1.0-2. 0 Not Available [facility] (Lab) [address] [place], [address], 12/28/2022 12:16:56 12/29/19 23 12/28/2022 LIPID PANEL cholesterol 202 mg/dL 140-19 9 high NIH ARTHUR NSUS RECOM MENDA TION FOR JONNATHAN STERO L: ADULT CHILD LOW RISK: <200 <170 BORDE RLINE : <200- 239 ----- HIGH RISK: >240 >200 Not Available [facility] (Lab) [address] [place], [address], 12/28/2022 12:17:21 12/29/19 23 12/28/2022 LIPID PANEL triglyceride s 159 mg/dL 0-150 high NIH ARTHUR NSUS REPOR T RECOM MENDA TION FOR TRIGL YCERI DARLENE: ADULT CHILD LOW RISK: <150 ----- BODER LINE: 150-1 99 ----- HIGH RISK: >200 ----- Not Available [facility] (Lab) [address] [place], [address], 12/28/2022 12:17:21 12/29/19 23 12/28/2022 LIPID PANEL HDL cholesterol 48 mg/dL 40- Not Available [facility] (Lab) [address] [place], [address], 12/28/2022 12:17:21 12/29/19 23 12/28/2022 LIPID PANEL LDL cholesterol, calculated 122 mg/dL 0-130 NIH ARTHUR NSUS REPOR T RECOM MENDA TIONS FOR LDL: ADULT CHILD LOW RISK <130 <110 (OPTI MAL LDL) <100 ----- BORDE RLINE : 130-1 59 ----- HIGH RISK: >160 >130 A TRIGL YCERI DE RESUL T >400 INVAL IDATE S THE CALCU LATIO N FOR LDL FRACT IONAT ION - THE LDL RESUL T WILL NOT BE REPOR NISHA. Not Available [facility] (Lab) [address] [place], [address], 12/28/2022 12:17:21 12/29/19 23 12/28/2022 T4 FREE free T4 1.38 NG/dL 0.78-2 .19 Not Available [facility] (Lab) [address] [place], [address], 12/28/2022 12:21:56 12/29/19 23 12/28/2022 VITAM IN D 25-HY DROXY vd25oh 22.2 NG/mL 30-100 low Vitam in D Statu s: Defic ient: <20 ng/mL Insuf ficie nt: 20-29 ng/mL Suffi cient : 30-10 0 ng/mL Not Available [facility] (Lab) [address] [place], [address], 12/28/2022 12:27:26 12/29/19 23 12/28/2022 TSH thyroid-stim ulating hormone 3.510 uIU/m L 0.465- 4.680 Not Available [facility] (Lab) [address] [place], [address], 12/28/2022 12:35:23 12/29/19 23 12/28/2022 HEMOG LOBIN A1C HA1C 6.6 % 4.0-6. 0 high Diabe charis Scree charbel Crite jose: <5.7% Consi stent with absen ce of diabe charis 5.7-6 .4% Consi stent with incre ased risk for diabe charis (pred iabet es) >OR=6 .5% Consi stent with diabe charis REFER ENCE: Diabe charis Care 2016, 39(Ramos ppl.1 ):s13 -s22 Not Available [facility] (Lab) [address] [place], [address], 12/28/2022 13:03:46 12/29/19 23 12/28/2022 VITAM IN B12 (DONN JHON ) vb12 813 pg/mL 239-93 1 Not Available [facility] (Lab) [address] [place], [address], 12/28/2022 13:13:19 12/29/1912/28/2022 FOLAT E, SERUM /PLAS MA folate >20.0 NG/mL 2.76-2 0.0 high Not Available [facility] (Lab) [address] [place], [address], 12/28/2022 13:13:26 04/26/2004/26/2023 CBC/C OMPLE TE BLD COUNT W/DIF F white blood cells 13.5 x10'3 /uL 4.2-10 .8 high Not Available [facility] (Lab) [address] [place], [address], 04/26/2023 14:48:37 04/26/2004/26/2023 CBC/C OMPLE TE BLD COUNT W/DIF F red blood cells 5.09 x10'6 /uL 3.80-5 .20 Not Available [facility] (Lab) [address] [place], [address], 04/26/2023 14:48:37 04/26/2004/26/2023 CBC/C OMPLE TE BLD COUNT W/DIF F hemoglobin 17.1 g/dL 12.0-1 5.6 high Not Available [facility] (Lab) [address] [place], [address], 04/26/2023 14:48:37 04/26/2004/26/2023 CBC/C OMPLE TE BLD COUNT W/DIF F hematocrit 51.4 % 35.7-4 5.7 high Not Available [facility] (Lab) [address] [place], [address], 04/26/2023 14:48:37 04/26/20 23 04/26/2023 CBC/C OMPLE TE BLD COUNT W/DIF F mean red cell volume 101.0 fL 82.0-9 9.0 high Not Available [facility] (Lab) [address] [place], [address], 04/26/2023 14:48:37 04/26/2004/26/2023 CBC/C OMPLE TE BLD COUNT W/DIF F mean red cell hemoglobin 33.6 pg 27.0-3 3.0 high Not Available [facility] (Lab) [address] [place], [address], 04/26/2023 14:48:37 04/26/2004/26/2023 CBC/C OMPLE TE BLD COUNT W/DIF F mean RBC HGB concentratio n 33.3 g/dL 31.0-3 6.0 Not Available [facility] (Lab) [address] [place], [address], 04/26/2023 14:48:37 04/26/2004/26/2023 CBC/C OMPLE TE BLD COUNT W/DIF F red cell distribution width 12.6 % 11.8-1 5.5 Not Available [facility] (Lab) [address] [place], [address], 04/26/2023 14:48:37 04/26/2004/26/2023 CBC/C OMPLE TE BLD COUNT W/DIF F platelets 103 x10'3 /uL 150-40 0 low Not Available [facility] (Lab) [address] [place], [address], 04/26/2023 14:48:37 04/26/2004/26/2023 CBC/C OMPLE TE BLD COUNT W/DIF F mean platelet volume 11.4 fL 9.0-12 .4 Not Available [facility] (Lab) [address] [place], [address], 04/26/2023 14:48:37 04/26/2004/26/2023 CBC/C OMPLE TE BLD COUNT W/DIF F neutrophils 69.0 % 39.0-7 2.0 Not Available [facility] (Lab) [address] [place], [address], 04/26/2023 14:48:37 04/26/2004/26/2023 CBC/C OMPLE TE BLD COUNT W/DIF F lymphocytes 22.3 % 16.0-4 7.0 Not Available [facility] (Lab) [address] [place], [address], 04/26/2023 14:48:37 04/26/2004/26/2023 CBC/C OMPLE TE BLD COUNT W/DIF F monocytes 5.1 % 5.0-12 .0 Not Available [facility] (Lab) [address] [place], [address], 04/26/2023 14:48:37 04/26/2004/26/2023 CBC/C OMPLE TE BLD COUNT W/DIF F eosinophils 2.5 % 1.0-7. 0 Not Available [facility] (Lab) [address] [place], [address], 04/26/2023 14:48:37 04/26/2004/26/2023 CBC/C OMPLE TE BLD COUNT W/DIF F basophils 0.6 % 0.0-2. 0 Not Available [facility] (Lab) [address] [place], [address], 04/26/2023 14:48:37 04/26/2004/26/2023 CBC/C OMPLE TE BLD COUNT W/DIF F immature granulocytes 0.5 % 0.00-0 .50 Not Available [facility] (Lab) [address] [place], [address], 04/26/2023 14:48:37 04/26/2004/26/2023 CBC/C OMPLE TE BLD COUNT W/DIF F neutrophils, absolute count 9.30 x10'3 /uL 1.5-8. 0 high Not Available [facility] (Lab) [address] [place], [address], 04/26/2023 14:48:37 04/26/2004/26/2023 CBC/C OMPLE TE BLD COUNT W/DIF F lymphocytes, absolute count 3.00 x10'3 /uL 1.07-3 .43 Not Available [facility] (Lab) [address] [place], [address], 04/26/2023 14:48:37 04/26/2004/26/2023 CBC/C OMPLE TE BLD COUNT W/DIF F monocytes, absolute count 0.69 x10'3 /uL 0.29-0 .99 Not Available [facility] (Lab) [address] [place], [address], 04/26/2023 14:48:37 04/26/2004/26/2023 CBC/C OMPLE TE BLD COUNT W/DIF F eosinophils, absolute count 0.34 x10'3 /uL 0.02-0 .53 Not Available [facility] (Lab) [address] [place], [address], 04/26/2023 14:48:37 04/26/2004/26/2023 CBC/C OMPLE TE BLD COUNT W/DIF F basophils, absolute count 0.08 x10'3 /uL 0.01-0 .08 Not Available [facility] (Lab) [address] [place], [address], 04/26/2023 14:48:37 04/26/2004/26/2023 CBC/C OMPLE TE BLD COUNT W/DIF F immature granulocytes ,absolute 0.07 x10'3 /uL 0.00-0 .05 high Not Available [facility] (Lab) [address] [place], [address], 04/26/2023 14:48:37 04/26/20 23 04/26/2023 CBC/C OMPLE TE BLD COUNT W/DIF F nucleated red blood cells 0.0 % -0 Not Available [facility] (Lab) [address] [place], [address], 04/26/2023 14:48:37 04/26/20 23 04/26/2023 CBC/C OMPLE TE BLD COUNT W/DIF F NRBC# 0.00 x10'3 /uL Not Available [facility] (Lab) [address] [place], [address], 04/26/2023 14:48:37 04/26/2004/26/2023 COMPR EHENS DINO METAB OLIC PANEL sodium 139 mmol/ L 137-14 5 Not Available [facility] (Lab) [address] [place], [address], 04/26/2023 17:28:20 04/26/2004/26/2023 COMPR EHENS DINO METAB OLIC PANEL potassium 4.0 mmol/ L 3.5-5. 1 Not Available [facility] (Lab) [address] [place], [address], 04/26/2023 17:28:20 04/26/2004/26/2023 COMPR EHENS DINO METAB OLIC PANEL chloride 107 mmol/ L 98-107 Not Available [facility] (Lab) [address] [place], [address], 04/26/2023 17:28:20 04/26/2004/26/2023 COMPR EHENS DINO METAB OLIC PANEL carbon dioxide 23 mmol/ L 22-30 Not Available [facility] (Lab) [address] [place], [address], 04/26/2023 17:28:20 04/26/2003 0504/26/2023 COMPR EHENS DINO METAB OLIC PANEL anion gap 13.0 mmol/ L 14-22 low Not Available [facility] (Lab) [address] [place], [address], 04/26/2023 17:28:20 04/26/20 23 04/26/2023 COMPR EHENS DINO METAB OLIC PANEL glucose 124 mg/dL 70-99 high Not Available [facility] (Lab) [address] [place], [address], 04/26/2023 17:28:20 04/26/2004/26/2023 COMPR EHENS DINO METAB OLIC PANEL BUN 10 mg/dL 8-19 Not Available [facility] (Lab) [address] [place], [address], 04/26/2023 17:28:20 04/26/2004/26/2023 COMPR EHENS DINO METAB OLIC PANEL creatinine 0.63 mg/dL 0.66-1 .25 low Not Available [facility] (Lab) [address] [place], [address], 04/26/2023 17:28:20 04/26/2004/26/2023 COMPR EHENS DINO METAB OLIC PANEL GFR >60 Refer ence Range : [place] ge GFR Healt hy Adult : >60 mL/mi n/1.7 3 m2 Chron ic Kidne y Disea se: 15-60 mL/mi n/1.7 3 m2 Kidne y Failu re: <15/m L/min /1.73 m2 www.n iddk. nih.g ov The MDRD study equat ion has not been valid ated in child alonso <18 years of age; pregn ant women ; the elder ly >85 years of age; or in some racia l or ethni c subgr oups, such as Hispa nics. Outsi de the valid ated linda eters , estim ated GFR is less accur ate, requi ring clini mikaela judgm ent on a case- by-ca se basis . Clini mikaela inter preta tion for other races and ages must be made by the clini raj. The MDRD study equat ion has not been valid ated for the evalu ation of serum creat inine relat ed to nutri zac l statu s or medic ation usage . For perso ns <18 years of age, a pedia tric GFR calcu lator is avail able on the [facility] websi te: https ://otis w.hernandez galvezy.o rg/pr ofess ional s/kdo qi/gf r_cal culat or Not Available [facility] (Lab) [address] [place], [address], 04/26/2023 17:28:20 04/26/2004/26/2023 COMPR EHENS DINO METAB OLIC PANEL alkaline phosphatase 84 U/L 38-126 Not Available [facility] (Lab) [address] [place], [address], 04/26/2023 17:28:20 04/26/2004/26/2023 COMPR EHENS DINO METAB OLIC PANEL alanine aminotransfe rase 23 U/L 0-35 Not Available [facility] (Lab) [address] [place], [address], 04/26/2023 17:28:20 04/26/20 23 04/26/2023 COMPR EHENS DINO METAB OLIC PANEL aspartate aminotransfe rase 22 U/L 15-37 Not Available [facility] (Lab) [address] [place], [address], 04/26/2023 17:28:20 04/26/20 23 04/26/2023 COMPR EHENS DINO METAB OLIC PANEL bilirubin, total 0.60 mg/dL 0.20-1 .30 Not Available [facility] (Lab) [address] [place], [address], 04/26/2023 17:28:20 04/26/2004/26/2023 COMPR EHENS DINO METAB OLIC PANEL calcium 9.9 mg/dL 8.4-10 .2 Not Available [facility] (Lab) [address] [place], [address], 04/26/2023 17:28:20 04/26/20 23 04/26/2023 COMPR EHENS DINO METAB OLIC PANEL total protein 7.3 g/dL 6.3-8. 2 Not Available [facility] (Lab) [address] [place], [address], 04/26/2023 17:28:20 04/26/2004/26/2023 COMPR EHENS DINO METAB OLIC PANEL albumin 4.1 g/dL 3.0-4. 4 Not Available [facility] (Lab) [address] [place], [address], 04/26/2023 17:28:20 04/26/20 23 04/26/2023 COMPR EHENS DINO METAB OLIC PANEL globulin 3.2 g/dL 2.6-4. 2 Not Available [facility] (Lab) [address] [place], [address], 04/26/2023 17:28:20 04/26/20 23 04/26/2023 COMPR EHENS DINO METAB OLIC PANEL A/G ratio 1.3 ratio 1.0-2. 0 Not Available [facility] (Lab) [address] [place], [address], 04/26/2023 17:28:20 04/26/20 23 04/26/2023 LIPID PANEL cholesterol 186 mg/dL 140-19 9 NIH ARTHUR NSUS RECOM MENDA TION FOR JONNATHAN STERO L: ADULT CHILD LOW RISK: <200 <170 BORDE RLINE : <200- 239 ----- HIGH RISK: >240 >200 Not Available [facility] (Lab) [address] [place], [address], 04/26/2023 17:28:25 04/26/20 23 04/26/2023 LIPID PANEL triglyceride s 233 mg/dL 0-150 high NIH ARTHUR NSUS REPOR T RECOM MENDA TION FOR TRIGL YCERI DARLENE: ADULT CHILD LOW RISK: <150 ----- BODER LINE: 150-1 99 ----- HIGH RISK: >200 ----- Not Available [facility] (Lab) [address] [place], [address], 04/26/2023 17:28:25 04/26/20 23 04/26/2023 LIPID PANEL HDL cholesterol 42 mg/dL 40- Not Available [facility] (Lab) [address] [place], [address], 04/26/2023 17:28:25 04/26/20 23 04/26/2023 LIPID PANEL LDL cholesterol, calculated 97 mg/dL 0-130 NIH ARTHUR NSUS REPOR T RECOM MENDA TIONS FOR LDL: ADULT CHILD LOW RISK <130 <110 (OPTI MAL LDL) <100 ----- BORDE RLINE : 130-1 59 ----- HIGH RISK: >160 >130 A TRIGL YCERI DE RESUL T >400 INVAL IDATE S THE CALCU LATIO N FOR LDL FRACT IONAT ION - THE LDL RESUL T WILL NOT BE REPOR NISHA. Not Available [facility] (Lab) [address] [place], [address], 04/26/2023 17:28:25 04/26/2004/26/2023 VITAM IN D 25-HY DROXY vd25oh 52.1 NG/mL 30-100 Vitam in D Statu s: Defic ient: <20 ng/mL Insuf ficie nt: 20-29 ng/mL Suffi cient : 30-10 0 ng/mL Not Available [facility] (Lab) [address] [place], [address], 04/26/2023 17:38:51 04/26/20 23 04/26/2023 HEMOG LOBIN A1C HA1C 5.7 % 4.0-6. 0 Diabe charis Tre barger Crite jose: <5.7% Consi stent with absen ce of diabe charis 5.7-6 .4% Consi stent with incre ased risk for diabe charis (pred iabet es) >OR=6 .5% Consi stent with diabe charis REFER ENCE: Diabe charis Care 2016, 39(Ramos ppl.1 ):s13 -s22 Not Available [facility] (Lab) [address] [place], [address], 04/26/2023 18:21:26 04/26/2004/26/2023 VITAM IN B12 (DONN JHON ) vb12 975 pg/mL 239-93 1 high Not Available [facility] (Lab) [address] [place], [address], 04/26/2023 18:28:07 04/26/2004/26/2023 FOLAT E, SERUM /PLAS MA folate 8.91 NG/mL 2.76-2 0.0 Not Available [facility] (Lab) [address] [place], [address], 04/26/2023 18:28:08 04/26/20 23 04/26/2023 T4 FREE free T4 1.46 NG/dL 0.78-2 .19 Not Available [facility] (Lab) [address] [place], [address], 04/26/2023 21:54:05 04/26/2004/26/2023 TSH thyroid-stim ulating hormone 3.890 uIU/m L 0.465- 4.680 Not Available [facility] (Lab) [address] [place], [address], 04/26/2023 22:04:56 Result Notes None recorded. Problems Name Problem SNOMED Code Status Onset Date Resolution Date Notes Provider Name and Address Organization Details Recorded Time Erythrocytosi s 333643942 Active 2022 Not Available [facility] 10/18/202 3 00:40:42 Vitamin D deficiency 92891186 Active 2021 Not Available [facility] 3 00:40:42 Hypothyroidis m 49163529 Active 2021 Not Available [facility] 3 00:40:42 Vitamin B12 deficiency (non anemic) 96252089 Active 2021 Not Available [facility] 3 00:40:43 COVID-19 357529362 Active 2022 Not Available [facility] 3 00:40:43 Postablative hypothyroidis m 549685196 Active 2022 Not Available [facility] 3 00:40:42 Mixed anxiety and depressive disorder 757202854 Active 2022 Not Available [facility] 3 00:40:42 Chronic obstructive pulmonary disease 74804951 Active 2022 Not Available [facility] 3 00:40:42 Nicotine dependence 65934916 Active 2022 Not Available [facility] 3 00:40:42 Leukocytosis 206028379 Active 2022 Not Available [facility] 3 00:40:42 Prediabetes 635952044 Active 2022 Not Available [facility] 3 00:40:43 Obesity 732012257 Active 2022 Not Available [facility] 3 00:40:42 Migraine 97965822 Active 2022 Not Available [facility] 3 00:40:42 Essential hypertension 20307350 Active 2022 Not Available [facility] 3 00:40:43 Hypertriglyce ridemia 795334490 Active 2022 Not Available [facility] 3 00:40:42 Osteopenia 369494029 Active 2022 Not Available [facility] 3 00:40:42 Insomnia 852649109 Active 2022 Not Available [facility] 3 00:40:42 Type 2 diabetes mellitus without complication 477194807 Active 2022 Not Available [facility] 3 00:40:42 Problem Notes None recorded. Procedures Surgical History Date Name Laterality Status Provider Name and Address Organization Details Recorded Time cholecystectomy completed Not Available [facility] 09/09/2022 16:55:56 [facility] 16:55:56 delivery completed Not Available [facility] 09/09/2022 16:55:56 Imaging Results None recorded. Procedure Notes None recorded. Medical Equipment None Reported. Allergies Allergen ID Allergen Name Allergen Category Reaction Reaction Severity Criticality Documentation Date Start Date Code Code System Note Provider Name and Address Organization Details Recorded Time 42407 Product containin g penicilli n (product) medicatio n Not available Not available Not available 09/09/2022 96267 8001 SNOMED Not Available [facility] 3 16:58:16 58156 aspirin medicatio n rash moderate Not available 09/09/20222022 1191 RxNorm Not Available [facility] 3 16:58:16 Medications Name Sig Start Date Stop Date Status Note LastModified by Organization Details LastModified Time aspirin 81 mg tablet,tracey yed release Take 1 tablet every day by oral route. active Not Available Not Available No t Available levothyroxi ne 75 mcg tablet TAKE 1 TABLET BY MOUTH ONCE DAILY IN THE MORNING 2023 active Not Available Not Available Not Avai lable cyanocobala min (vit B-12) 500 mcg tablet TAKE 1 TABLET BY MOUTH ONCE DAILY active Not Available Not Available No t Available levothyroxi ne 50 mcg tablet TAKE 1 TABLET BY MOUTH ONCE DAILY 08/31 completed Not Available Not Available Not Available propranolol ER 80 mg capsule,24 hr,extended release Take 1 capsule by mouth once daily active Not Available Not Available No t Available buspirone 7.5 mg tablet Take 1 tablet twice a day by oral route. active Not Available Not Available No t Available ergocalcife rol (vitamin D2) 1,250 mcg (50,000 unit) capsule TAKE 1 CAPSULE BY MOUTH ONCE A WEEK active Not Available Not Available No t Available metformin ER 500 mg tablet,exte nded release 24 hr TAKE 1 TABLET BY MOUTH ONCE DAILY active Not Available Not Available No t Available buspirone 15 mg tablet Take 1 tablet twice a day by oral route. 08/31 completed Not Available Not Available Not Available escitalopra m 10 mg tablet TAKE 1 TABLET BY MOUTH ONCE DAILY 12/29 completed Not Available Not Available Not Available bupropion HCl XL 150 mg 24 hr tablet, extended release Take 1 tablet every day by oral route in the morning. 12/29 completed Not Available Not Available Not Available BinaxNOW COVID-19 Ag Self Test kit Use as Directed on the Package 04/02 completed Not Available Not Available Not Available Paxlovid 300 mg (150 mg x 2)-100 mg tablets in a dose pack TAKE DIRECTED 12/28 completed Not Available Not Available Not Available Vitals Date Recorded Body mass index (BMI) Body height Oxygen saturation Oxygen saturation in Arterial blood by Pulse oximetry Heart rate Body temperature Body weight Systolic blood pressure Diastolic blood pressure Provider Name and Address Organization Details Last Updated DateTime 3 32.3 kg/m2 165.1 cm 96 % 96 % 76 /min 97.7 [degF] 07715.9 2 g 138 mm[Hg] 88 mm[Hg] Not Available [facility] 3 16:56:12 Date Recorded Body mass index (BMI) Body height Oxygen saturation Oxygen saturation in Arterial blood by Pulse oximetry Heart rate Body temperature Body weight Systolic blood pressure Diastolic blood pressure Provider Name and Address Organization Details Last Updated DateTime 3 32 kg/m2 165.1 cm 98 % 98 % 74 /min 97.6 [degF] 88828.7 4 g 128 mm[Hg] 80 mm[Hg] Not Available [facility] 3 16:56:12 Date Recorded Body height Body mass index (BMI) Body weight Body temperature Heart rate Oxygen saturation Oxygen saturation in Arterial blood by Pulse oximetry Systolic blood pressure Diastolic blood pressure Provider Name and Address Organization Details Last Updated DateTime 3 165.1 cm 31.8 kg/m2 03444.1 4 g 97.9 [degF] 62 /min 96 % 96 % 148 mm[Hg] 84 mm[Hg] Mona Pablo, [place] - [facility] 3 10:13:32 Date Recorded Body mass index (BMI) Body height Oxygen saturation Oxygen saturation in Arterial blood by Pulse oximetry Heart rate Body temperature Body weight Systolic blood pressure Diastolic blood pressure Provider Name and Address Organization Details Last Updated DateTime 2 32.9 kg/m2 165.1 cm 96 % 96 % 70 /min 97.4 [degF] 66775.2 9 g 146 mm[Hg] 84 mm[Hg] Not Available [facility] 3 16:56:12 Date Recorded Body height Body mass index (BMI) Body weight Body temperature Heart rate Oxygen saturation Oxygen saturation in Arterial blood by Pulse oximetry Systolic blood pressure Diastolic blood pressure Provider Name and Address Organization Details Last Updated DateTime 3 165.1 cm 31.8 kg/m2 57641.1 4 g 97.8 [degF] 80 /min 98 % 98 % 132 mm[Hg] 78 mm[Hg] Mona Pablo [place] - [facility] [employer] 3 11:15:49 Social History Question Answer Notes LastModified by Organization Details LastModified Time Tobacco Smoking Status Current Every Day Smoker Not Available [facility] 09/09/2022 16:55:49 What Is Your Level Of Caffeine Consumption? Heavy [id number] Information not available 09/09/2022 In The 14 Days Before Symptom Onset, Have You Had Close Contact With A Laboratory-confi rmed COVID-19 While That Case Was Ill? No [id number].030 [id number] Information not available 09/09/2022 In The 14 Days Before Symptom Onset, Have You Had Close Contact With A Person Who Is Under Investigation For COVID-19 While That Person Was Ill? No MIGRATION.030 [id number] Information not available 09/09/2022 What Type Of Diet Are You Following? REGULAR [id number] Information not available 09/09/2022 What Is The Highest Grade Or Level Of School You Have Completed Or The Highest Degree You Have Received? [id number] [id number] Information not available 09/09/2022 Have There Been Any Changes To Your Family Or Social Situation? Yes Passed September 17 2021 [id number] Information not available 09/09/2022 What Is The Fluoride Status Of Your Home? Unknown [id number].300 [id number] Information not available 09/09/2022 Are There Any Guns Present In Your Home? No MIGRATION.0301 [id number] Information not available 09/09/2022 Do You Use Insect Repellent Routinely? No MIGRATION.0301 [id number] Information not available 09/09/2022 Where Do You Live? [facility] MIGRATION.[id number] [id number] Information not available 09/09/2022 What Was The Date Of Your Most Recent Tobacco Screening? 04/26/2023 [email or web address] Information not available 04/26/2023 Do You Have Any Pets? No MIGRATION.0301 [id number] Information not available 09/09/2022 What Is Your Relationship Status? MIGRATION.0301 [id number] Information not available 09/09/2022 Do You Use Your Seat Belt Or Car Seat Routinely? Yes [id number].0301 [id number] Information not available 09/09/2022 Do You Have Smoke And Carbon Monoxide Detectors In Your Home? Yes MIGRATION.0301 [id number] Information not available 09/09/2022 Are You Passively Exposed To Smoke? Yes MIGRATION.0301 [id number] Information not available 09/09/2022 Are There Any Smokers In Your House? Yes MIGRATION.0301 [id number] Information not available 09/09/2022 How Much Tobacco Do You Smoke? 1 PPD MIGRATION.0301 [id number] Information not available 09/09/2022 Do You Use Sunscreen Routinely? No MIGRATION.0301 [id number] Information not available 09/09/2022 Have You Recently Traveled Abroad? No MIGRATION.0301 [id number] Information not available 09/09/2022 Do You Have Any Dietary Restrictions? No MIGRATION.0301 [id number] Information not available 09/09/2022 Sex: Unknown Functional Status Question Answer Note LastModified by [employer] Details LastModified Time Do you use any illicit or recreational drugs? No [id number] Information not available 09/09/2022 What is your level of alcohol consumption? Occasional [id number] 026 Information not available 09/09/2022 What is your occupation? none [id number] 026 Information not available 09/09/2022 What is your exercise level? None [id number] 026 Information not available 09/09/2022 Mental Status Question Answer Note LastModified by [employer] Details LastModified Time Do you feel stressed (tense, restless, nervous, or anxious, or unable to sleep at night)? [id number] Information not available 09/09/2022 Family History Relationship Description Onset Age of this Age Resolved Age Notes LastModified by Organization Details LastModified Time Sister Family history of malignant neoplasm [id number] Not available 09/09/2022 16:55:56 Medical History Condition Response HYPERTHYROIDISM Gynecological HistoryNo gynecological history recorded. Obstetrics History GPAL:G 0 P 0 0 0 0 Immunizations Vaccine Type Date Status Note Provider Nam e and Address Organization Details Recorded Time COVID-19, mRNA, LNP-S, PF, 100 mcg/0.5mL dose or 50 mcg/0.25mL dose 11/05/2020 completed Not Available [facility] 3 00:40:43 COVID-19, mRNA, LNP-S, PF, 100 mcg/0.5mL dose or 50 mcg/0.25mL dose 10/08/2020 completed Not Available [facility] 3 00:40:43 Past Encounters Encounter ID Performer Location Encounter Start Date Encounter Closed Date Diagnosis/Indication Diagnosis SNOMED-CT Code Diagnosis ICD10 Code Diagnosis Note [id number] Britt hitchcock MD [facility] [address] [place], [address] [address] 11/06/2021 00:00:00 11/06/2021 12:45:24 [id number] Britt hitchcock MD [facility] 15 2043 [place] Tang, [address] [address] 12/09/2021 00:00:00 12/09/2021 13:58:25 [id number] Britt hitchcock MD [facility] 15 20[address] [place] , [address] [address] 12/29/2021 00:00:00 12/29/2021 13:47:13 [id number] MATY Robles [facility] 15 20[address] [place] , [address] [address] 01/26/2022 00:00:00 01/26/2022 14:01:31 [id number] Britt hitchcock MD [facility] Internal Med [facility] [address] [place] [address] Ave[address] [place] [address] 03/02/2022 00:00:00 03/02/2022 13:14:12 [id number] Britt hitchcock MD [facility] Internal Med [address] [place] [address] 1 04/02/2022 00:00:00 04/02/2022 13:30:37 [id number] Britt hitchcock MD [facility] Internal Med [address] [place] [address] 1 08/03/2022 00:00:00 08/03/2022 13:20:17 [id number] Britt hitchcock MD [facility] Internal Med [address] [place] [address] 1 08/31/2022 00:00:00 08/31/2022 12:31:48 [id number] Britt hitchcock MD [facility] Internal Med [address] [place] [address] 1 12/28/2022 10:03:31 12/28/2022 10:35:50 Postablative hypothyroidism 659563688 E89.0 on levothyrox ine Mixed anxi ety and depressive disorder 861310591 F41.8 support provided to patient today, strongly recommend she pursue some counseling or grief therapyshe had requested to discontinu e the buspar- now off meds call office if any change in mood or behavior I have again strongly recommende d both psychiatry referral and counseling , she refusesI have also offered IOP program referral, she refusesShe agrees to call 911 or go to nearest emergency room if in crisis could not tolerate wellbutrin or lexapro Chronic ob structive pulmonary disease 36557761 J44.9 very diminished breath sounds on examShe declines any COPD workupShe declines any inhalers Nicotine dependence 5629 4008 F17.200 2 minutes spent with patient discussing risks, cessation options. Patient encouraged to quit. She is not interested in cessation at this time. 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 Holguin- next appt January Erythrocytosis 853357251 D75.1 likely 2/2 to her smoking/CO PDnow following hematology - Dr. Holguin- [place] appt in January Prediabetes 242419077 R7 3.03 working on diet/exerc ise Hypertriglyceridemia 302 858791 E78.1 no meds yetworking on diet/exerc ise Obesity 641778949 E66.9 recommend healthy, well balanced mealsfocus on lean meats, fresh vegetables , fresh fruits, whole grainsredu ce fast/proce ssed foods or eating out to no more than 1-2 times per weekaim to get 30 min of exercise most days of the week- walking is a great choice Osteopenia 340860741 M85 .80 Recommend calcium rich diet, continue vitamin-Dr tuttle weight-nacho ring exercise 2-3 times per week Migraine 34675164 G43.90 9 according to her report, triptans and topamax did not helpon propranolo l for prophylaxi sshe is aware of side effects, risks, benefitssh e declines neurology referralto ER if headache is severe or if neuro symptoms Essential hypertension 11413038 I10 on propranolo lkeep BP logs and bring to next appt Insomnia 995174866 G47.0 0 Recommend she see Psychiatry as we have tried multiple meds for her mood in the primary care settingShe refusescal l office if she changes her mind and wants referral Colonoscopy declined 584 5994102 76101 Z53.20 risks explained including missed cancer and Noncomplia nce with treatment 8586234 Z91.199 risks discussed as aboveadvis ed patient her refusal of necessary referrals interferes with my ability to care for her fully, she voices understand ing and continues to refuse Screening mammography 24 354234 Z12.31 Adult heal th examination 805186289 Z00.01 Depression screening 171 464029 Z13.31 [id number] Britt hitchcock MD [facility] [address] [facility] [address] [place] [address] 04/26/2023 11:08:10 04/26/2023 11:31:43 Postablative hypothyroidism 420786623 E89.0 on levothyrox ine Mixed anxi ety and depressive disorder 739030926 F41.8 she had requested to discontinu e the buspar- now off meds call office if any change in mood or behavior I have again strongly recommende d both psychiatry referral and counseling , she refusesI have also offered IOP program referral, she refusesShe agrees to call 911 or go to nearest emergency room if in crisis could not tolerate wellbutrin or lexapro Chronic ob structive pulmonary disease 06654571 J44.9 very diminished breath sounds on examShe declines any COPD workupShe declines any inhalers Nicotine dependence 5629 4008 F17.200 2 minutes spent with patient discussing risks, cessation options. Patient encouraged to quit. She is not interested in cessation at this time. Recommend LDCT- she declines at this time, risks discussed including missed cancer and Vitamin D deficiency 347 37198 E55.9 on supplement Vitamin B1 2 deficiency (non anemic) 02525007 E53.8 on supplement Leukocytosis 716582243 D 72.829 now following hematology - Dr. Holguin/ Dr. Vale Erythrocytosis 559416728 D75.1 likely 2/2 to her smoking/CO PDnow following hematology - Dr. Holguin/Blanca Valethe y have recommende d LDCT and smoking cessation- she declines LDCT and is not interested in smoking cessation at this time Prediabetes 632484288 R7 3.03 working on diet/exerc ise Hypertriglyceridemia 302 120487 E78.1 no meds yetworking on diet/exerc ise Obesity 699621339 E66.9 recommend healthy, well balanced mealsfocus on lean meats, fresh vegetables , fresh fruits, whole grainsredu ce fast/proce ssed foods or eating out to no more than 1-2 times per weekaim to get 30 min of exercise most days of the week- walking is a great choice Osteopenia 445056084 M85 .80 Recommend calcium rich diet, continue vitamin-Dr ecommend weight-nacho ring exercise 2-3 times per week Migraine 42193366 G43.90 9 according to her report, triptans and topamax did not helpon propranolo l for prophylaxi sshe is aware of side effects, risks, benefitssh e declines neurology referralto ER if headache is severe or if neuro symptoms Essential hypertension 05658218 I10 on propranolo l Insomnia 938198379 G47.0 0 Recommend she see Psychiatry as we have tried multiple meds for her mood in the primary care settingShe refusescal l office if she changes her mind and wants referral Colonoscopy declined 448 1467975 06346 Z53.20 risks explained including missed cancer and Noncomplia nce with treatment 8462177 Z91.199 risks discussed as aboveadvis ed patient her refusal of necessary referrals interferes with my ability to care for her fully, she voices understand ing and continues to refuse Mammogram declined 67743 5004 Z53.20 risks explained including missed cancer and Health Concerns Section Related Observation LastModified by Organization Detai ls LastModified Time None Recorded Concern Status LastModified by Organization Details LastModified Time None Recorded Advance Directives Directive None Recorded Payers Insurance Date Sequence Insurance Name Policy Number Policy Christianson Covered Member ID Christianson Member ID Guarantor Name 04/23/2023 1 [employer] BETTER HEALTH OF [place] BRAVO ON OR AFTER 06/11/2020 (MEDICAID REPLACEMENT - HMO) Rosario L Anushka [id number] Rosario Reveles Notes Date Note Type Note Provider Name and Address Organization Details Recorded Time 12/28/2022 text/html Rosario presents today for follow-up. She is also due for her annual wellness exam. She reports her brother recently. She is leaving soon to go down to [place] for his . She reports she is coping with this loss okay. She remains off her mood medications and she tells me that she does not feel like she needs any medications at this time. She also tells me she is not interested in seeing the counselor or the psychiatrist. She denies any SI or HI today. She reports she has had some hair loss recently. We did make an adjustment to her thyroid dose about 4 months ago. She was supposed to get repeat labs however she has not done that. Will get orders for that today. Her migraines have been well controlled on the propanolol for prophylaxis. She denies any issues with her breathing. She again denies the need for any inhalers for her COPD. She does continue to smoke. She is not interested in cessation at this time. She continues to decline colonoscopy. She also does not want to see the GI to discuss which type of colonoscopy he would recommend. She also continues to decline well-woman exam. She also continues to refuse LDCT. She does have her follow-up with the automobile mechanic radiator in early January. She is due for her screening labs as well as her mammogram. MATY Robles [address], [place], [address], [address]el[address] 12/28/2022 13:19:05 04/26/2023 text/html many presents today for follow-up. She did go see the automobile mechanic radiator for follow-up. They feel like her with her cytosis is related to her COPD. They have recommended she get her LD CT and to work on smoking cessation. She again declines her LD CT. She is not interested in smoking cessation at this time. She does not feel like she needs any inhalers. I did give her another mammogram order last visit, she has not decided she does not want to get that done. We had also previously talked about colonoscopy, or even seeing GI and talking to them about options because she had issues with a previous colonoscopy. She still is not interested in getting this done and declines today. She reports she had a cold last week but is now feeling back to baseline. She is taking her thyroid medication daily. She remains off of medication. She does not want to start any at this time. She denies any SI or HI today. She is due for labs. She declines flu vaccine today. MATY Robles [address], [place], [address], [address] 04/26/2023 11:33:14 OBGyn Episode No OBEpisode recorded.
[2024-12-28 22:54] VITALS: BP 184/106; PULSE 90; RESP 18; TEMP 36.6; O2SAT 94
--- NOTE | 2024-12-28 23:34 | ED_ITS ---
HPI - Animal Bite General Chief Complaint: Animal Bite <JOSEPH Farmer Last Filed: 12/29/24 01:01> Stated Complaint: raccoon bite <Syeda Brannon PA-C - Last Filed: 12/29/24 01:01> Time Seen by Provider: 12/28/24 23:26 <Syeda Brannon PA-C - Last Filed: 12/29/24 01:01> History of Present Illness HPI narrative: 64-year-old female presents emergency department for recommend attack. Pt states she attempted to get the raccoon's out of her garage min 1 of them attacked her left leg. She reports of bite enmanuel to the distal left tibia and to superficial scratches to the distal medial tibia. Bleeding controlled. Denies other injuries. Last Tdap unknown. She has never been vaccinated for rabies before. <Syeda Brannon PA-C - Last Filed: 12/29/24 01:01> Related Data Allergies/Adverse Reactions: Allergies Allergy/AdvReac Type Severity Reaction Status Date / Time ANTIBIOTICS Allergy Unknown Uncoded 12/28/24 22:31 PCN Allergy Unknown Uncoded 12/28/24 22:31 <JOSEPH Farmer Last Filed: 12/29/24 01:01> Review of Systems 2 Review of Systems: All systems reviewed & are unremarkable except as noted in HPI and below <JOSEPH Farmer Last Filed: 12/29/24 01:01> Exam Narrative: GENERAL: Well-appearing, well-nourished, and in no acute distress. HEAD: Normocephalic, atraumatic. EYES: EOMI. ENT: Nares clear, no rhinorrhea or epistaxis. Mucous membranes moist. NECK: Supple. CHEST: Clear to auscultation. No respiratory distress. HEART: Regular rate and rhythm. No murmur heard. Normal peripheral pulses. EXTREMITIES: Normal range of motion. No edema. SKIN: Superficial abrasions to the lateral distal left tibia with no foreign bodies or deep structures visualized, no active bleeding or significant tenderness. Two very superficial scratch araya to the medial distal left tib- fib with no deep structures or foreign bodies visualized, no active bleeding. DP pulses 2+. Sensation intact. Compartments are soft. No ecchymosis or edema NEURO: No focal deficits. Alert and oriented x3 <Syeda Brannon PA-C - Last Filed: 12/29/24 01:01> Course Course Emergency Course: Pharmacy called me this morning for pcn allergy. Will change to bactrim + flagyl instead of augmentin. <Omaira Jean-Baptiste MD - Last Filed: 12/29/24 09:06> Vital Signs Vital signs: Vital Signs Temperature 97.6 F 12/28/24 22:25 Pulse Rate 86 12/28/24 22:25 Respiratory Rate 18 12/28/24 22:25 Blood Pressure 183/84 H 12/28/24 22:25 Pulse Oximetry 97 12/28/24 22:25 Oxygen Delivery Room Air 12/28/24 22:25 Temperature 98 F 12/28/24 22:54 Pulse Rate 90 12/28/24 22:54 Respiratory Rate 18 12/28/24 22:54 Blood Pressure 184/106 H 12/28/24 22:54 Pulse Oximetry 94 12/28/24 22:54 Oxygen Delivery Room Air 12/28/24 22:54 <Syeda Brannon PA-C - Last Filed: 12/29/24 01:01> Vital Signs Temperature 97.6 F 12/28/24 22:25 Pulse Rate 86 12/28/24 22:25 Respiratory Rate 18 12/28/24 22:25 Blood Pressure 183/84 H 12/28/24 22:25 Pulse Oximetry 97 12/28/24 22:25 Oxygen Delivery Room Air 12/28/24 22:25 Temperature 98 F 12/28/24 22:54 Pulse Rate 90 12/28/24 22:54 Respiratory Rate 18 12/28/24 22:54 Blood Pressure 184/106 H 12/28/24 22:54 Pulse Oximetry 94 12/28/24 22:54 Oxygen Delivery Room Air 12/28/24 22:54 <Omaira Jean-Baptiste MD - Last Filed: 12/29/24 09:06> MDM - Animal Bite MDM Narrative Medical decision making narrative: 64-year-old female presents to the emergency department for a raccoon attacked that occurred prior to arrival. See HPI for further history. Vitals with elevated blood pressure. Exam is notable for the above. Wounds irrigated extensively with normal saline. Tdap updated. I discussed presentation with infection prevention nurse, Brooklyn Chua, who recommends initiating the rabies vaccine protocol and rabies immune globulin. Patient was also started on Augmentin for prophylaxis. She does have a history of penicillin allergy in her chart, however states she has tolerated amoxicillin well for the past. No history of anaphylaxis. She was monitored in the ED with no reaction or evidence of anaphylaxis. Patient was given IM rabies vaccine. Approximately 2 cc of rabies immune globulin was injected into the bite wound. Patient declined any more injections into the wound and would not allow me to inject the remainder of the immunoglobulin into her deltoid due to pain. She is requesting to leave against medical advice. I discussed that she did not fully complete the prophylactic treatment for rabies and that she is at risk for layla rabies and having permanent disability and . She understands these risks and signed AMA paperwork. She was given instructions for upcoming rabies vaccines on day 3, 7 and 14 and given strict ED return precautions. <JOSEPH Farmer Last Filed: 12/29/24 01:01> Discharge Plan Discharge Clinical Impression: Bite by animal, Abrasion <JOSEPH Farmer Last Filed: 12/29/24 01:01> Patient Disposition: Left Against Medical Advice <JOSEPH Farmer Filed: 12/29/24 01:01> Condition: Stable <JOSEPH Farmer Last Filed: 12/29/24 01:01> Instructions: Antibiotic Form, Animal Bite (ED) <JOSEPH Farmer Last Filed: 12/29/24 01:01> Additional Instructions: Please keep her wounds clean and dry. Make sure to return to [place] for your next rabies vaccinations which will be on 01/01/25, 01/05/25, 01/05/25. Return to the emergency department sooner if you develop fever, surrounding redness, drainage or other concerning symptoms to your injuries. He left against medical advice prior to receiving full prophylactic treatment of your rabies. <JOSEPH Farmer Last Filed: 12/29/24 01:01> Patient Language: Pakistani <JOSEPH Farmer Last Filed: 12/29/24 01:01> Prescriptions: New amoxicillin-pot clavulanate 875-125 mg tablet 1 tablet PO Q12H Qty: 14 0RF <Syeda Brannon PA-C - Last Filed: 12/29/24 01:01> Follow-up/Referrals: Supa,MD [place] [Primary Care Provider] - <Syeda Brannon PA-C - Last Filed: 12/29/24 01:01>
[2024-12-29] MEDS: TETANUS,DIPHTHERIA,AC PERTUSSIS ADULT (0.5 ML) BOOSTRIX IM (00:12)
[2024-12-29] MEDS: AMOXICILLIN/CLAVULANATE K 875-125 MG TAB 1 TABLET PO (00:12)
[2024-12-29] MEDS: RABIES VACCINE (RABAVERT) 2.5 UNITS VIAL IM (00:13)
[2024-12-29] MEDS: RABIES IMMUNE GLOBULIN 1750 UNITS INFILTRATE (00:42)
--- NOTE | 2025-01-02 10:20 | PC.NURSE ---
Patient arrived to outpatient lab/registration on 01/01/25 to receive her 2nd dose of the Rabies vaccine as scheduled. The patient stated that if she will have to pay for the Rabies vaccines, she will not be getting them. This RN informed the patient that she can apply for financial assistance and payment plans are available. This RN explained the importance of continuing the Rabies PEP. The patient refused and left. This RN notified Janel with [facility].
== END 2024-12-29 01:05 | disposition left against medical advice (07) ==
PROVIDERS: Emergency Provider Physician Assistant; PCP Internal Medicine
DX: S81.852A Open bite, left lower leg, initial encounter (principal); S80.812A Abrasion, left lower leg, initial encounter; Z23 Encounter for immunization; W55.51XA Bitten by raccoon, initial encounter
CPT/HCPCS: 73590; 90375; 90471; 90472; 90675; 90715; 96372; 99283; A9270